=== PATIENT | male | born 1950 | race Caucasian/White ===

== ENCOUNTER 2021-06-23 01:21 | Observation (INO) | payer MEDICARE ==
[~2021-06-23] VITALS: Ht 167.6 cm; Wt 62.1 kg
[2021-06-23] MEDS ORDERED: 0.9%NACL 1000ML 1,000 ML IV ONE ×3 (01:54→04:26)
[2021-06-23] MEDS ORDERED: MORPHINE 2 MG SYG ONE (01:54)
[2021-06-23] MEDS ORDERED: ONDANSETRON 4MG INJ ONE (01:54)
[2021-06-23 01:56] LABS: BASOPHILS % (AUTO) 0.3 % (0.0-5.0); HEMATOCRIT 37.7 % (42-54); LYMPHOCYTES % (AUTO) 4.4 % (21.0-51.0); MEAN CORPUSCULAR HGB CONC 32.9 g/dL (32.0-36.0); MEAN CORPUSCULAR VOLUME 100.3 fL (79-99); MONOCYTES % (AUTO) 8.8 % (3.0-13.0); NEUTROPHILS % (AUTO) 86.1 % (40.0-77.0); PLATELET COUNT (AUTO) 325 K/uL (130-400); RED BLOOD CELL COUNT(AUTO) 3.76 MIL/uL (4.50-6.20); RED CELL DISTRIBUTION WIDTH 13.2 % (11.0-15.5); WHITE BLOOD COUNT (AUTO) 11.9 K/uL (4.8-10.8)
[2021-06-23] MEDS ORDERED: MORPHINE 2 MG SYG IVP ONE (02:00)
[2021-06-23] MEDS ORDERED: ONDANSETRON 4MG INJ IVP ONE (02:00)
[2021-06-23 02:08] LABS: CREATININE 2.5 mg/dL (0.5-1.5); POTASSIUM 4.4 mmol/L (3.5-5.1)
[2021-06-23 02:15] LABS: ALBUMIN 4.6 g/dL (3.5-5.0); BILIRUBIN,TOTAL 0.3 mg/dL (0.2-1.0); TOTAL PROTEIN, SERUM 8.4 g/dL (6.0-8.3)
[2021-06-23] MEDS ORDERED: MORPHINE 4 MG SYG IV PRN (04:00)
[2021-06-23] MEDS ORDERED: ONDANSETRON 4MG INJ IV PRN (04:00)
[2021-06-23] MEDS ORDERED: 0.9%NACL 1000ML 1,914 ML IV ONE (04:00)
[2021-06-23] MEDS ORDERED: BISMUTH SUBSALICYLATE 525 MG/15 ML ML PO SCH ×2 (04:00→10:00)
[2021-06-23] MEDS ORDERED: ACETAMINOPHEN 325 MG TAB PO PRN (04:00)
[2021-06-23] MEDS: PHARMACY COMMUNICATION MISC SCH ×3 (04:30→22:30)
[2021-06-23] MEDS: 0.9%NACL 1000ML 1,000 ML IV SCH ×2 (04:32→16:52)
[2021-06-23] MEDS: MORPHINE 2 MG SYG IV PRN ×2 (07:55→12:28)
[2021-06-23] MEDS: FAMOTIDINE 20MG VIAL IV SCH (08:59)
[2021-06-23] MEDS ORDERED: HEPARIN 5,000 UNIT VIAL SQ SCH (09:00)
[2021-06-23] MEDS: LACTOBACILLUS RHAMNOSUS GG 1 EACH CAP.SPRINK PO SCH (09:00)
[2021-06-23] MEDS ORDERED: FURO40TA5 PO (09:51)
[2021-06-23] MEDS ORDERED: AMLO-258 PO (09:51)
[2021-06-23] MEDS ORDERED: CLOP75TA32 PO (09:51)
[2021-06-23] MEDS ORDERED: SIMV-46 PO (09:51)
[2021-06-23] MEDS ORDERED: LISI5TAB21 PO (09:51)
[2021-06-23] MEDS ORDERED: OMEP20CA12 PO (09:51)
[2021-06-23] MEDS ORDERED: FERR324T23 PO (09:51)
[2021-06-23] MEDS ORDERED: CARV6.25 PO (09:51)
[2021-06-23] MEDS ORDERED: DOCU100P MC (09:51)
[2021-06-23] MEDS ORDERED: SPIR25TA6 PO (09:51)
[2021-06-23] MEDS ORDERED: CYAN100084 PO (09:51)
[2021-06-23] MEDS ORDERED: AEC81 PO (09:52)
[2021-06-23 09:53] LABS: BASOPHILS % (AUTO) 0.3 % (0.0-5.0); EOSINOPHILS % (AUTO) 0.6 % (0.0-8.0); LYMPHOCYTES % (AUTO) 11.5 % (21.0-51.0); MEAN CORPUSCULAR HEMOGLOBIN 33.1 pg (27.0-33.0); MEAN CORPUSCULAR HGB CONC 31.6 g/dL (32.0-36.0); MEAN CORPUSCULAR VOLUME 104.8 fL (79-99); MONOCYTES % (AUTO) 7.7 % (3.0-13.0); NEUTROPHILS % (AUTO) 79.2 % (40.0-77.0); PLATELET COUNT (AUTO) 209 K/uL (130-400); RED BLOOD CELL COUNT(AUTO) 3.53 MIL/uL (4.50-6.20); RED CELL DISTRIBUTION WIDTH 13.2 % (11.0-15.5)
[2021-06-23 10:04] LABS: ALANINE AMINOTRANSFERASE 41 U/L (12-78); ALBUMIN 4.1 g/dL (3.5-5.0); ASPARTATE AMINOTRANSFERASE 38 U/L (10-37); BILIRUBIN,TOTAL 0.3 mg/dL (0.2-1.0); CARBON DIOXIDE 21 mmol/L (21-32); CHLORIDE 103 mmol/L (101-111); CREATININE 1.6 mg/dL (0.5-1.5); GLOMERULAR FILTR. RATE CALC 46 mL/min (>60); GLUCOSE,RANDOM 84 mg/dL (70-105); POTASSIUM 5.1 mmol/L (3.5-5.1); SODIUM SERUM 134 mmol/L (136-145); TOTAL PROTEIN, SERUM 7.6 g/dL (6.0-8.3); UREA NITROGEN, BLOOD 42 mg/dL (7-18)
[2021-06-23 10:05] LABS: CRP QUANTITATIVE < 2.00 mg/L (0.00-9.0)
[2021-06-23] MEDS: ASPIRIN 81 MG EC TAB PO SCH (10:37)
[2021-06-23] MEDS: CARVEDILOL 3.125 MG TABLET PO SCH ×2 (10:37→20:59)
[2021-06-23 10:45] VITALS: BP 118/71
[2021-06-23 16:00] VITALS: BP 117/72
[2021-06-23] MEDS: CLOPIDOGREL 75MG TAB PO SCH (16:51)
[2021-06-23 20:00] VITALS: BP 119/75
[2021-06-23] MEDS ORDERED: SIMVASTATIN 20 MG TABLET PO SCH (21:00)
[2021-06-24] VITALS: BP 134/70
[2021-06-24 04:00] VITALS: BP 111/65
[2021-06-24] MEDS: PHARMACY COMMUNICATION MISC SCH (04:30)
[2021-06-24] MEDS: MORPHINE 2 MG SYG IV PRN ×2 (04:41→10:40)
[2021-06-24 05:42] LABS: BASOPHILS % (AUTO) 0.6 % (0.0-5.0); HEMATOCRIT 29.3 % (42-54); LYMPHOCYTES % (AUTO) 8.8 % (21.0-51.0); MEAN CORPUSCULAR HEMOGLOBIN 31.9 pg (27.0-33.0); MEAN CORPUSCULAR HGB CONC 32.4 g/dL (32.0-36.0); MEAN CORPUSCULAR VOLUME 98.3 fL (79-99); MONOCYTES % (AUTO) 8.5 % (3.0-13.0); NEUTROPHILS % (AUTO) 81.8 % (40.0-77.0); PLATELET COUNT (AUTO) 161 K/uL (130-400); RED BLOOD CELL COUNT(AUTO) 2.98 MIL/uL (4.50-6.20); RED CELL DISTRIBUTION WIDTH 12.8 % (11.0-15.5); WHITE BLOOD COUNT (AUTO) 3.5 K/uL (4.8-10.8)
[2021-06-24 05:52] LABS: CREATININE 1.1 mg/dL (0.5-1.5); MAGNESIUM 1.7 mg/dL (1.80-2.40); PHOSPHORUS 2.4 mg/dL (2.5-4.9); URIC ACID 6.3 mg/dL (2.6-7.2)
[2021-06-24 08:00] VITALS: BP 120/68
[2021-06-24] MEDS: ASPIRIN 81 MG EC TAB PO SCH (08:06)
[2021-06-24] MEDS: FAMOTIDINE 20MG VIAL IV SCH (08:06)
[2021-06-24] MEDS: LACTOBACILLUS RHAMNOSUS GG 1 EACH CAP.SPRINK PO SCH (08:06)
[2021-06-24] MEDS: CLOPIDOGREL 75MG TAB PO SCH (08:07)
[2021-06-24] MEDS: CARVEDILOL 3.125 MG TABLET PO SCH (08:11)
[2021-06-24] MEDS ORDERED: CYANOCOBALAMIN (VITAMIN B-12) 1,000 MCG TABLET PO SCH (09:00)
[2021-06-24] MEDS ORDERED: FERROUS GLUCONATE TABLET PO SCH (09:00)
[2021-06-24] MEDS ORDERED: PANTOPRAZOLE 40 MG TAB DR PO SCH (09:30)
[2021-06-24] MEDS ORDERED: METR-172 PO (10:03)
[2021-06-24] MEDS ORDERED: LEVO500T90 PO (10:03)
[2021-06-24] MEDS ORDERED: LACT1CAP79 PO (10:03)
[2021-06-24 10:15] LABS: % IRON SATURATION 8.3 % (30-44)
[2021-06-24 12:00] VITALS: BP 128/66
[2021-06-25] MEDS ORDERED: PANTOPRAZOLE 40 MG TAB DR PO SCH (09:00)
== END 2021-06-24 17:00 | disposition home or self-care (01) ==
LOC: EDH 01:21 → EDHIP 03:40 → 3BH 11:45
PROVIDERS: ADMIT Internal Medicine; ATTEND Internal Medicine
DX: D72.829 Elevated white blood cell count, unspecified (principal); N17.9 Acute kidney failure, unspecified; K52.9 Noninfective gastroenteritis and colitis, unspecified; E86.9 Volume depletion, unspecified; E86.0 Dehydration; I10 Essential (primary) hypertension; E78.5 Hyperlipidemia, unspecified; E86.1 Hypovolemia; E78.00 Pure hypercholesterolemia, unspecified; K74.60 Unspecified cirrhosis of liver; F17.210 Nicotine dependence, cigarettes, uncomplicated; Z86.73 Personal history of transient ischemic attack (TIA), and cerebral infarction without residual deficits; Z79.899 Other long term (current) drug therapy
CPT/HCPCS: 36415 ×2; 74176; 76770; 80048; 80053 ×2; 82607; 82728; 82746; 83540; 83550; 83605; 83690; 83735 ×2; 83880; 84100; 84145; 84484; 84550; 85025 ×3; 85651; 86140; 87040 ×2; 93005; 96361 ×2; 96372; 96374; 96375; 96376 ×2; 99285; G0378 ×36; J1644; J2270; J2405 ×2; J3490 ×2; J7030 ×4

== ENCOUNTER 2023-08-19 09:43 | Emergency (ER) | payer MEDICAID, MEDICARE ==
[~2023-08-19] VITALS: Ht 170.2 cm; Wt 71.7 kg
[~2023-08-19 09:43] MED LIST: AEC81 PO; AMLO-258 PO; CARV6.25 PO; CYAN100084 PO; DOCU100P MC; FERR324T23 PO; FURO40TA5 PO; LACT1CAP79 PO; LEVO-70 PO; LISI5TAB21 PO; METR-172 PO; OMEP20CA12 PO; SIMV-46 PO; SPIR25TA6 PO
[2023-08-19 10:26] LABS: BASOPHILS # (AUTO) 0.07 K/uL (0.00-0.20); BASOPHILS % (AUTO) 0.7 % (0.0-5.0); EOSINOPHILS # (AUTO) 0.44 K/uL (0.00-0.70); EOSINOPHILS % (AUTO) 4.3 % (0.0-8.0); HEMATOCRIT 38.5 % (42-54); IMMATURE GRANULOCYTE ABSOLUTE 0.04 K/uL (0-1); LYMPHOCYTES # (AUTO) 2.1 K/uL (1.0-4.8); LYMPHOCYTES % (AUTO) 20.8 % (21.0-51.0); MEAN CORPUSCULAR HEMOGLOBIN 31.5 pg (27.0-33.0); MEAN CORPUSCULAR HGB CONC 33.2 g/dL (32.0-36.0); MEAN CORPUSCULAR VOLUME 94.8 fL (79-99); MONOCYTES # (AUTO) 0.8 K/uL (0.1-1.0); MONOCYTES % (AUTO) 8.2 % (3.0-13.0); NEUTROPHILS # (AUTO) 6.6 K/uL (1.8-7.7); NEUTROPHILS % (AUTO) 65.6 % (40.0-77.0); PLATELET COUNT (AUTO) 243 K/uL (130-400); RED BLOOD CELL COUNT(AUTO) 4.06 MIL/uL (4.50-6.20); RED CELL DISTRIBUTION WIDTH 12.6 % (11.0-15.5); WHITE BLOOD COUNT (AUTO) 10.1 K/uL (4.8-10.8)
[2023-08-19] MEDS: FAMOTIDINE 20MG VIAL IV ONE (10:36)
[2023-08-19] MEDS: ONDANSETRON 4MG INJ IVP ONE (10:36)
[2023-08-19 11:00] LABS: ALBUMIN 3.7 g/dL (3.5-5.0); BILIRUBIN,TOTAL 0.2 mg/dL (0.2-1.0); CREATININE 1.3 mg/dL (0.5-1.3); INR 0.99 (0.85-1.15); POTASSIUM 4.5 mmol/L (3.5-5.1); PROTHROMBIN TIME 10.7 SEC (9.6-11.6); TOTAL PROTEIN, SERUM 7.6 g/dL (6.0-8.3)
[2023-08-19 11:01] LABS: PARTIAL THROMBOPLASTIN TIME 24.8 SEC (26.3-35.5)
[2023-08-19 11:06] LABS: APPEARANCE,URINE CLEAR (CLEAR); BILIRUBIN,URINE NEGATIVE (NEGATIVE); COLOR,URINE LIGHT-YELLOW (YELLOW); GLUCOSE, URINE (UA) NEGATIVE (NEGATIVE); KETONES,URINE NEGATIVE (NEGATIVE); LEUKOCYTE ESTERASE ,URINE NEGATIVE Leu/uL (NEGATIVE); NITRATE,URINE NEGATIVE (NEGATIVE); OCCULT BLOOD,URINE NEGATIVE (NEGATIVE); PH,URINE 5.5 (5.0-8.0); PROTEIN,URINE NEGATIVE (NEGATIVE); UROBILINOGEN,URINE 0.2 mg/dL (0.2-1.0)
[2023-08-19 11:08] LABS: MUCUS,URINE RARE LPF (None Seen); WBC,URINE 0-1 /HPF (0-1)
[2023-08-19] MEDS: MORPHINE 2 MG SYG IVP ONE (12:02)
[2023-08-19 12:33] VITALS: BP 126/71; PULSE 76; RESP 17; O2SAT 97
== END 2023-08-19 14:39 | disposition home or self-care (01) ==
LOC: EDH 09:43
DX: K59.00 Constipation, unspecified (principal); I10 Essential (primary) hypertension; Z79.82 Long term (current) use of aspirin; Z79.899 Other long term (current) drug therapy; Z98.890 Other specified postprocedural states; Z88.5 Allergy status to narcotic agent; Z88.8 Allergy status to other drugs, medicaments and biological substances
CPT/HCPCS: 99285; 74176; 96374; 96375; 71045; 82550; 84484; 80053; 83690; 85025; 85610; 85730; 83605; 81001; 36415; 93005; 84145; J3490; J2270; J2405

== ENCOUNTER 2024-09-10 15:12 | Emergency (ER) | payer MEDICARE ==
[~2024-09-10] VITALS: Ht 170.2 cm; Wt 58.1 kg
--- NOTE | 2024-09-10 15:40 | NUR ---
RETAINING 622 CC OF URINE AFTER BLADDER SCAN, DR BELCHER NOTIFIED, ORDERED TO INSERT HURD CATHETER
--- NOTE | 2024-09-10 15:47 | ERN ---
General Chief Complaint: Painful Urination Stated Complaint: LOWER ABD PAIN Time Seen by MD: 15:17 Source: patient History of Present Illness Initial Comments Patient is a 73-year-old gentleman coming in complaining of lower abdominal discomfort. He states that while trying to urinate he is unable to urinate in his causing some discomfort. No fever or chills. Allergies: Coded Allergies: codeine (Unverified Allergy, Unknown, 06/23/21) iodine (Unverified Allergy, Unknown, 06/23/21) red dye (Unverified Allergy, Unknown, 06/23/21) Home Meds Active Scripts Metronidazole (Metronidazole) 500 Mg Tablet, 500 MG PO BID for 5 Days, #10 TAB Prov:COSME BUTTERFIELD Jr., MD 06/24/21 Levofloxacin (Levofloxacin) 500 Mg Tablet, 500 MG PO DAILY for 5 Days, #5 TAB Prov:COSME BUTTERFIELD Jr., MD 06/24/21 Lactobacillus Rhamnosus GG (Culturelle) 1 Each Cap.sprink, 1 EACH PO DAILY for 30 Days, #30 CAP.SPRINK Prov:COSME BUTTERFIELD Jr., MD 06/24/21 Reported Medications Aspirin (ASPIRIN 81 MG ECTAB) 81 Mg Ectab, 81 MG PO DAILY, TAB.EC 06/23/21 Carvedilol (Carvedilol) 6.25 Mg Tablet, 3.12 MG PO BID, TAB 06/23/21 Lisinopril (Lisinopril) 5 Mg Tablet, 2.5 MG PO DAILY, TAB 06/23/21 Furosemide (Furosemide) 40 Mg Tablet, 40 MG PO DAILY, TAB 06/23/21 Amlodipine Besylate (Amlodipine Besylate) 10 Mg Tablet, 10 MG PO DAILY for 30 Days, #30 TAB 0 Refills 06/23/21 Docusate Sodium (Docusate Sodium) 100 Gm Powder, 100 GM MC DAILY, APPL 06/23/21 Cyanocobalamin (Vitamin B-12) (B-12) 1,000 Mcg Tablet.er, 1000 MCG PO DAILY, TAB 06/23/21 Spironolactone (Spironolactone) 25 Mg Tablet, 25 MG PO DAILY, TAB 06/23/21 Ferrous Gluconate (Ferrous Gluconate) 324 Mg Tablet, 324 MG PO DAILY, TAB 06/23/21 Omeprazole (Omeprazole) 20 Mg Capsule.dr, 20 MG PO DAILY, CAP 06/23/21 Simvastatin (Simvastatin) 40 Mg Tablet, 40 MG PO HS, TAB 06/23/21 Past Medical History Past Medical History: CHF, High Cholesterol, Hypertension, Stroke, TIA Medical History Other: LIVER CIRRHOSIS Past Surgical History: Other Surgical History Other: LEFT ENDARDECTOMY Social History Social History: Other ROS Dictation CONSTITUTIONAL: No chills, no fever, no weakness, no diaphoresis, no malaise. HEAD/FACE: No signs of trauma. EENT: No eye pain, no blurred vision, no tearing, no double vision, no ear pain, no ear discharge, no nose pain, no nasal congestion, no throat pain, no th roat swelling, no mouth pain. RESPIRATORY: No cough, no orthopnea, no SOB, no stridor, no wheezing. CARDIOVASCULAR: No chest pain, no edema, no palpitations, no syncope. GASTROINTESTINAL/ABDOMINAL: abdominal pain, no constipation, no diarrhea, no nausea, no vomiting. GENITOURINARY: No abnormal discharge, no dysuria, no frequent urination, no hematuria. No complaints of pain in the genitals. MUSCULOSKELETAL: No back pain, no gout, no joint pain, no joint swelling, no muscle pain, no muscle stiffness, no neck pain. INTEGUMENTARY: No change in color, no change in hair/nails, no dryness, no lesion, no lumps, no rash. NEUROLOGICAL/PSYCH: No anxiety, not depressed, no emotional problem, no headache, no numbness, no pre-existing deficit, no history of seizures, no tremors, no weakness. HEMATOLOGIC/LYMPHATIC: Not anemic, no history of blood clots, no apparent bleeding, no bruising, glands not swollen. All Systems Negative, Except as Noted. Physical Exam Physical Exam Dictation VITAL SIGNS: Reviewed. GENERAL APPEARANCE: Alert, oriented x3, no acute distress, obese. HEAD AND FACE: Non-traumatic. EYES: PERRL, pink conjunctivas, eyelid no trauma, anterior chamber clear. EARS: Pinnas intact and no signs of trauma or erythema. Ear canals clear and no discharge. TMs no erythema. NOSE: No discharge, no bleeding. OROPHARYNX: Mouth normal, teeth no caries, tongue pink. Pharynx clear, no erythema. Tonsils no exudates, no abscesses noted. Mucous membrane moist. NECK: Supple, non-tender, no thyromegaly, no masses, no JVD, no bruits. BREAST: Deferred. CHEST: No tenderness, no crepitus, no paradoxical movement, no retractions. LUNGS: Clear, well-ventilated, symmetric, no rales, no wheezing, no rhonchi, no stridor, good breath sounds bilaterally. HEART: Regular rate, regular rhythm, no murmur, no gallops. VASCULAR: No peripheral edema. ABDOMEN: Soft, positive bowel sounds, nondistended, no guarding, nontender, no rebound, no masses no hepatomegaly, no splenomegaly, no Ho's sign, no hernias. RECTAL: Deferred. GENITAL: Deferred. NEUROLOGICAL: Normal speech, gross motor function intact, gross sensory function intact. MUSCULOSKELETAL: Neck nontender, full range of motion, back nontender, full range of motion. EXTREMITIES: Nontender, full range of motion. SKIN: Color pink, dry, no turgor, no rash, no lacerations, no abrasions, no co ntusions. LYMPHATICS: Deferred. Results Laboratory and Microbiology Labs Reviewed?: Yes MDM MDM: Differential diagnosis: Urinary retention, prostate enlargement, Rationale: Tests considered and ordered secondary to shared decision making include: Previous outside records reviewed: Old ER visits. Risk of complication and/or morbidity or mortality of patient management: None Medications-Per medication reconciliation Need for hospitalization: Patient does not meet criteria for hospitalization. Patient is a 73-year-old gentleman coming in complaining of lower abdominal pain. Bladder scan disclose elevated urine bladder. Silver has been was placed patient states in his symptoms resolved. Patient will be discharged in stable condition with a diagnosis of urinary retention secondary to BPH ED Course Orders Procedure Category Date Status Time Nurse Driven Silver KEYA 09/10/24 Verified Removal Pro 15:41 Bladder Scan CPOE 09/10/24 Verified 15:41 Tamsulosin Hcl PHA 09/10/24 Verified (Flomax) 16:00 Vital Signs Date Time Temp Pulse Resp B/P (MAP) Pulse Ox O2 Delivery O2 Flow Rate FiO2 09/10/24 15:38 98.2 122 20 121/77 98 Room Air* 0 21 09/10/24 15:16 97.0 123 20 114/72 98 Room Air 0 DX & DISP Disposition: Discharge Departure Impression: Primary Impression: Urine retention Condition: Stable Additional Instructions: FOLLOW-UP WITH PRIMARY CARE PROVIDER IN 1 TO 2 DAYS. TAKE MEDICATIONS DIRECTED HERE IN THE EMERGENCY ROOM. OKAY TO CONTINUE HOME MEDICATIONS UNLESS OTHERWISE DISCUSSED DURING YOUR VISIT IN THE EMERGENCY ROOM TODAY. RETURN TO YOUR NEAREST EMERGENCY ROOM IF SYMPTOMS WORSEN OR IF THERE IS NO IMPROVEMENT. CALL 911 IF YOU NEED IMMEDIATE ASSISTANCE. TAKE TYLENOL [id number] NEEDED AND IF NO CONTRAINDICATIONS ARE PRESENT. INCREASE ORAL HYDRATION. A WOUND CULTURE OR URINE CULTURE WAS ORDERED HERE IN THE EMERGENCY ROOM DEPARTMENT PLEASE FOLLOW-UP WITH PRIMARY CARE PROVIDER AND ADVISE THEM TO GET REPORTS FROM OUR FACILITY. IF YOU HAD ANY LYNDA WRAP/SPLINTS THAT WERE APPLIED HERE, PLEASE DO NOT REMOVE THEM UNTIL YOU SEE YOUR PRIMARY CARE OR SPECIALTY. Referrals: Referrals: SELF,REFERRAL (PCP) ADONAY COHEN MD, LUIS A MD Time of Disposition: 15:47 LITA BELCHER MD Sep 10, 2024 15:47
--- NOTE | 2024-09-10 15:58 | NUR ---
16 OCCITAN HURD CATHETER PLACED, OUTPUT OF 650 CC, NO COMPLICATIONS
--- NOTE | 2024-09-10 16:31 | NUR ---
SPOKE TO MONICA KEY RN FROM [facility] ABOUT PATIENT BEING DC'D AND SHE IS AWARE
--- NOTE | 2024-09-10 16:53 | NUR ---
SPOKE TO ROX FROM [facility] IN [place] TO TRANSPORT TO [facility] FOR PATIENT, FACE SHEET AND PCS FORM FAXED
[2024-09-10 18:06] VITALS: BP 117/72; PULSE 98; RESP 16; TEMP 98.1; O2SAT 99
--- NOTE | 2024-09-10 18:07 | NUR ---
[facility] ARRIVED FOR PATIENT, NO COMPLICATIONS
== END 2024-09-10 17:07 | disposition home or self-care (01) ==
LOC: EDH 15:12
DX: R33.9 Retention of urine, unspecified (principal); I11.0 Hypertensive heart disease with heart failure; I50.9 Heart failure, unspecified; E78.00 Pure hypercholesterolemia, unspecified; Z79.899 Other long term (current) drug therapy; Z86.73 Personal history of transient ischemic attack (TIA), and cerebral infarction without residual deficits; Z88.5 Allergy status to narcotic agent; Z88.8 Allergy status to other drugs, medicaments and biological substances; Z79.82 Long term (current) use of aspirin
CPT/HCPCS: 51702; 99284